=== PATIENT | male | born 1955 | race Caucasian/White ===

== ENCOUNTER → 2017-04-04 | Outpatient (CLI) | payer MEDICARE, BC ==
[~2017-04-04] MED LIST: ALLOPURINOL300 MG PO; AMITIZA24 MCG PO; B COMPLEX1 EACH PO; D3 PO; GABAPENTIN300 M2 PO; LEVOTHYROXINE100 MCG PO; MELATONIN1 MG PO; MULTI VITAMIN1 EACH; NOVOLOG FL100 UNIT/1; OXYCODONE-APAP1 EAC5 PO; PRISTIQ50 MG PO; TESTOSTERO200 MG/11 IM; VITAMIN C100 M1 PO
--- NOTE | ~2017-04-04 | XA51 ---
[facility] A Service of [facility] RADIOLOGY TEXT RESULTS PATIENT: ANNA RUDD LOCATION: [facility] : 53 UNIT #: [id number] AGE: [address]: Samy Jones MD SEX: M ORDER DR: [id number] [place], [place] [address] [id number] O MR#: [id number] Acc #: [id number] NAME: ANNA RUDD. : 1955 SEX: M STUDY DATE/TIME: 04/04/2017 9:30 UNIT: [facility] ROOM: STUDY DESCRIPTION: XA BX Bone Marrow Attending Physician: Samy Jones M.D. Ordering Physician: Samy Jones M.D. Primary Care Physician: Laureen Regan M.D. MEDICAL IMAGING REPORT This report is preliminary unless electronic signature is present EXAM Biopsy, bone marrow. HISTORY Multiple myeloma. FINDINGS Please see CT-guided bone marrow biopsy for results. Dictated by... Caridad Lawrence M.D. THIS IS AN ELECTRONICALLY VERIFIED REPORT Caridad Lawrence M.D. at 04/07/2017 3:27 PM AFF/pc TD: 04/07/2017 08:00 JOB #: [id number] MEDICAL IMAGING REPORT Page 1 of 1 COPY
--- NOTE | ~2017-04-04 | CT134 ---
[facility] A Service of [facility] RADIOLOGY TEXT RESULTS PATIENT: ANNA RUDD LOCATION: [facility] : 53 UNIT #: [id number] AGE: [address]: Samy Jones MD SEX: M ORDER DR: [id number] [facility]. [place], [place] [address] [id number] O MR#: [id number] Acc #: [id number] NAME: ANNA RUDD. : 1955 SEX: M STUDY DATE/TIME: 04/04/2017 9:30 UNIT: [facility] ROOM: STUDY DESCRIPTION: CT Guide Attending Physician: Samy Jones M.D. Ordering Physician: Samy Jones M.D. Primary Care Physician: Laureen Regan M.D. MEDICAL IMAGING REPORT This report is preliminary unless electronic signature is present EXAM CT-guided bone marrow biopsy. INDICATIONS Multiple myeloma. PROCEDURE The risks, benefits, and alternatives to the procedure were explained to the patient and signed, informed consent was obtained. Patient was placed prone on the CT scanner gantry. A preliminary CT scan was performed through the region of interest and an appropriate site overlying the patient's left iliac bone was selected. Overlying skin was marked. Patient was prepped and draped in usual sterile fashion. Time-out was performed as per protocol. Of note, patient does have multiple lucent lesions seen throughout the pelvis, which certainly could reflect diagnosis of multiple myeloma. An appropriate site overlying the left iliac bone was selected. Overlying skin was marked. Patient was prepped and draped in usual sterile fashion. Time-out was performed as per protocol. Skin and subcutaneous tissues were anesthetized with buffered lidocaine. The vein. The bone marrow biopsy needle was advanced into the left iliac bone. Repeat CT scan confirmed appropriate position of the needle, which was subsequently advanced into the bone marrow and a bone marrow aspirate was obtained. Needle was advanced further into the bone marrow and then removed, which yielded an adequate core sample. Manual pressure was applied until hemostasis was obtained. Patient tolerated procedure well. He did receive moderate sedation consisting of Versed 3 mg and 100 mcg of fentanyl. Continuous monitoring was provided by the IVR staff and I supervised the IVR nurse for a total of 10 minutes face to face time. This CT exam was performed with one or more of the following radiation dose reduction techniques: automatic exposure control, adjustment of mA STS. [facility] A Service of [facility] & [facility] RADIOLOGY TEXT RESULTS PATIENT: ANNA RUDD LOCATION: [facility] : 53 UNIT #: [id number] AGE: [address]: Samy Jones MD SEX: M ORDER DR: and/or kV according to patient size, and iterative reconstruction. IMPRESSION Technically successful CT-guided bone marrow biopsy as noted above. CT was used during the procedure and permanent images were saved. Dictated by... Caridad Lawrence M.D. THIS IS AN ELECTRONICALLY VERIFIED REPORT Caridad Lawrence M.D. at 04/07/2017 3:25 PM AFF/pc TD: 04/07/2017 07:57 JOB #: [id number] MEDICAL IMAGING REPORT Page 1 of 1 COPY
[2017-04-04 07:55] LABS: HEMATOCRIT 48.6 % (38.0-50.0); HEMOGLOBIN 16.2 gm/dL (13.0-16.0); MEAN CELL VOLUME 95.3 FL (83-96); MEAN CORPUSCULAR HEMOGLOBIN 31.7 PG (28-34); MEAN CORPUSCULAR HGB CONC 33.2 g/dL (30-36); MEAN PLATELET VOLUME 7.4 FL (6.5-11.5); RED BLOOD COUNT 5.1 X10e (3.90-5.60); WHITE BLOOD COUNT 7.5 X10e3 (4.0-10.5)
[2017-04-04 08:08] LABS: PARTIAL THROMBOPLASTIN TIME 28.2 SECONDS (23.5-31.3); PROTHROMBIN TIME (PATIENT) 10.5 SECONDS (10.0-11.7)
== END | disposition home or self-care (01) ==
LOC: CIVR 07:22
PROVIDERS: Internal Medicine Hematology & Oncology
DX: C90.00 Multiple myeloma not having achieved remission (principal)
CPT/HCPCS: 38221; G0364; 36415; 77012; 82947; 85027; 85610; 85730; 88182; 88184; 88185; 88305; 88311; 88313; 88323; 88342; 88368; 88369; 99153; J2250; J3010